=== PATIENT | female | born 1985 | race Caucasian/White ===

== ENCOUNTER 2021-05-18 20:49 | Inpatient (IN) | payer BC, OTHER ==
[2021-05-18] MEDS ORDERED: METHYLERGONOVINE 0.2 MG/ML 1 ML AMP IM PRN (21:20)
[2021-05-18] MEDS ORDERED: TERBUTALINE 1 MG/ML VIAL SQ PRN (21:20)
[2021-05-18] MEDS ORDERED: OXYTOCIN 10 UNIT/ML 1 ML VIAL IM PRN (21:20)
[2021-05-18] MEDS ORDERED: LIDOCAINE 0.5% (PF) 5 MG/ML (50 ML SDV) SQ PRN (21:20)
[2021-05-18] MEDS ORDERED: CLINDAMYCIN 900 MG in DEXTROSE 5% IN WATER 50 ML IVPB STA ×2 (21:20)
[2021-05-18] MEDS ORDERED: CARBOPROST TROMETHAMINE 250 MCG/ML 1 ML AMP IM PRN (21:20)
[2021-05-18] MEDS: LACTATED RINGERS 1,000 ML IV SCH (22:09)
[2021-05-18] MEDS ORDERED: BUTORPHANOL 1 MG/ML 1 ML VIAL IV PRN (22:44)
[2021-05-18 22:46] LABS: Basophils % (A) 0 %; Eosinophils # (A) 0.1 k/uL (0-0.7); Eosinophils % (A) 1 %; HCT 35.7 % (34.0-46.0); Lymphocytes # (A) 0.9 k/uL (1.0-4.8); Lymphocytes % (A) 12 %; MCH 33.1 pg (25.0-35.0); MCHC 33.5 g/dL (31.0-37.0); MCV 98.7 fL (80.0-100.0); Mean Platelet Volume 9.1; Monocytes # (A) 0.4 k/uL (0-1.0); Monocytes % (A) 6 %; Neutrophils # (A) 5.8 k/uL (1.3-7.7); Neutrophils % (A) 79 %; Platelet Count 223 k/uL (150-450); RBC 3.62 m/uL (3.80-5.40); RDW 13.7 % (11.5-15.5); WBC 7.4 k/uL (3.8-10.6)
[2021-05-18 22:48] LABS: Appearance,Urine Turbid (Clear); Bacteria,Urine Occasional /hpf; Bilirubin,Urine Negative (Negative); Blood,Urine Small (Negative); Color,Urine Light Yellow; Glucose,Urine (UA) Negative (Negative); Ketones,Urine Negative (Negative); Leukocyte Esterase,Urine Large (Negative); Mucus,Urine Rare /hpf; Nitrite,Urine Negative (Negative); Protein,Urine 1+ (Negative); RBC,Urine 15 /hpf (0-5); Specific Gravity,Urine 1.007 (1.001-1.035); Squamous Epithelial Cell,Urine 48 /hpf (0-4); Urobilinogen,Urine <2.0 mg/dL (<2.0); WBC,Urine 104 /hpf (0-5)
[2021-05-18 22:56] LABS: ALT 8 U/L (4-34); AST 26 U/L (14-36); African American GFR (CKD) >90 (>60 ml/min/1.73 sqM); Blood Urea Nitrogen 6 mg/dL (7-17); LDH 616 U/L (313-618); Non-African American GFR(CKD) >90 (>60 ml/min/1.73 sqM); Uric Acid 4.2 mg/dL (3.7-7.4)
[2021-05-18 22:58] LABS: Creatinine,Urine Random 27.9 mg/dL
[2021-05-18 22:59] LABS: Creatinine,Urine Random 28.1 mg/dL; Protein/Creatinine Ratio,Urine 2.598
[2021-05-19] MEDS ORDERED: OXYTOCIN 30 UNITS/500 ML NS 30 UNIT in SALINE 1 500ML.BAG IV SCH (03:00)
[2021-05-19] MEDS: LACTATED RINGERS 1,000 ML IV SCH ×3 (04:48→18:57)
[2021-05-19] MEDS: CLINDAMYCIN 900 MG in DEXTROSE 5% IN WATER 50 ML IVPB SCH ×6 (06:13→23:13)
[2021-05-19] MEDS ORDERED: SODIUM CHLORIDE 0.9% 100 ML BAG ONE (07:50)
[2021-05-19] MEDS ORDERED: ROPIVACAINE 5MG/ML 20ML VIAL ONE (07:50)
[2021-05-19] MEDS ORDERED: fentaNYL (PF) 50 MCG/ML 5 ML AMP ONE (07:50)
--- NOTE | 2021-05-19 08:04 | P.HPOB ---
History of Present Illness H&P Date: 05/19/21 Chief Complaint: Strong regular uterine contractions, spontaneous amniorrhexis This is a 36-year-old female 1 para 0 EDC 05/18/2021 at 40 and one sevenths weeks' gestation. Patient presented with her water breaking last night, clear fluid. Oxytocin was started and 3:00 this morning. She is currently very uncomfortable, requesting epidural. Fetus is been active throughout the . history blood type A positive, rubella status immune. VDRL testing, urine culture, hepatitis B surface antigen, HIV testing, gonorrhea and chlamydia cultures all negative. Positive group B strep cultures noted. Past medical history is significant for asthma, on no meds. Past surgical history: Tonsillectomy and adenoidectomy in the past Family history noncontributory. Social history patient is , she is a nonsmoker, she denies alcohol or drug use. ALLERGIES include penicillin and shellfish. Current medications vitamins daily, baby aspirin daily. On exam patient is 5 foot 1 inch, 185 pounds, vital signs are stable and she is afebrile. The general physical exam is within normal limits. Chest is clear in all olivares. Extremities reveal no edema. Uterine contractions are occurring every 2-3 minutes apart, patient rates and 10 out of 10. Cervix is 3 cm dilated, 70% effaced, -1 station, vertex presentation. heart rate is c onsistent with reactive NST. Impression: 40 and one sevenths weeks intrauterine , spontaneous labor. Positive group B strep cultures, clindamycin already received 2. Plan: We will proceed with epidural at this time. Continue close maternal and surveillance. Oxytocin to be managed per hospital protocol. Anticipating normal spontaneous vaginal delivery. Review of Systems Constitutional: Reports as per HPI Past Medical History Past Medical History: Asthma History of Any Multi-Drug Resistant Organisms: None Reported Past Surgical History: Adenoidectomy, Tonsillectomy Past Psychological History: No Psychological Hx Reported Smoking Status: Never smoker Past Alcohol Use History: Occasional Past Drug Use History: None Reported Medications and Allergies Home Medications Medication Instructions Recorded Confirmed Type Pnv No.95/Ferrous Fum/Folic AC 1 tab PO DAILY 05/18/21 05/18/21 History [ Multivitamin Tablet] Allergies Allergy/AdvReac Type Severity Reaction Status Date / Time Penicillins Allergy Rash/Hives Verified 05/18/21 20:53 shellfish derived [Shellfish] Allergy Rash/Hives Verified 05/18/21 20:53 Exam Vital Signs Temp Pulse Resp BP Pulse Ox 05/18/21 21:20 97.5 F L 82 16 153/98 98 05/18/21 20:52 97.5 F L 82 16 153/93 98 Intake and Output 05/18/21 05/19/21 05/19/21 22:59 06:59 14:59 Other: # Voids 3 4 Weight 83.915 kg See dictation under HPI placed Results Result Diagrams: 05/18/21 22:00 05/18/21 22:00 Abnormal Lab Results - Last 24 Hours (Table) 05/18/21 05/18/21 05/18/21 Range/Units 22:00 22:00 22:00 RBC (3.80-5.40) m/uL Lymphocytes # (1.0-4.8) k/uL BUN 6 L (7-17) mg/dL Creatinine 0.44 L (0.52-1.04) mg/dL Urine Appearance Turbid H (Clear) Urine Protein 1+ H (Negative) Urine Blood Small H (Negative) Ur Leukocyte Esterase Large H (Negative) Urine RBC 15 H (0-5) /hpf Urine WBC 104 H (0-5) /hpf Urine WBC Clumps Moderate H (None) /hpf Ur Squamous Epith Cells 48 H (0-4) /hpf Urine Bacteria Occasional H (None) /hpf Urine Mucus Rare H (None) /hpf U Random Total Protein 72 H (<12) mg/dL 05/18/21 Range/Units 22:00 RBC 3.62 L (3.80-5.40) m/uL Lymphocytes # 0.9 L (1.0-4.8) k/uL BUN (7-17) mg/dL Creatinine (0.52-1.04) mg/dL Urine Appearance (Clear) Urine Protein (Negative) Urine Blood (Negative) Ur Leukocyte Esterase (Negative) Urine RBC (0-5) /hpf Urine WBC (0-5) /hpf Urine WBC Clumps (None) /hpf Ur Squamous Epith Cells (0-4) /hpf Urine Bacteria (None) /hpf Urine Mucus (None) /hpf U Random Total Protein (<12) mg/dL Assessment and Plan Assessment: 40 and one sevenths weeks intrauterine , early labor. Positive group B strep cultures, clindamycin receive 2. Penicillin ALLERGY noted. Plan: Continue close maternal and surveillance. Continue oxytocin per hospital protocol. Epidural has been requested and anesthesia is aware. Anticipate normal spontaneous vaginal delivery. Time with Patient: Less than 30
[2021-05-19] MEDS ORDERED: OXYTOCIN 30 UNITS/500 ML NS BAG IV ONE (16:46)
[2021-05-19] MEDS ORDERED: NALBUPHINE 10 MG/ML (1 ML AMP) ONE (16:46)
[2021-05-19] MEDS ORDERED: HYDROmorphone (PF) 1 MG/ML ONE (16:46)
[2021-05-19] MEDS ORDERED: KETOROLAC 15 MG/ML 1 ML VIAL ONE (16:46)
[2021-05-19] MEDS ORDERED: ONDANSETRON 4 MG/2 ML VIAL ONE (16:46)
[2021-05-19] MEDS ORDERED: LIDOCAINE 2% SYG (PF) 100 MG/5 ML ONE (16:46)
[2021-05-19] MEDS ORDERED: diphenhydrAMINE 50 MG CAP PO PRN (17:41)
[2021-05-19] MEDS ORDERED: METOCLOPRAMIDE 5 MG/ML 2 ML VIAL IVP PRN (17:41)
[2021-05-19] MEDS ORDERED: ZOLPIDEM 5 MG TAB PO PRN (17:41)
[2021-05-19] MEDS ORDERED: diphenhydrAMINE 25 MG CAP PO PRN (17:41)
[2021-05-19] MEDS ORDERED: SIMETHICONE 80 MG CHEWABLE PO PRN (17:41)
[2021-05-19] MEDS ORDERED: ONDANSETRON 4 MG/2 ML VIAL IVP PRN (17:41)
[2021-05-19] MEDS ORDERED: NALOXONE 0.4 MG/ML 1 ML VIAL IV PRN ×2 (17:41→18:19)
[2021-05-19] MEDS ORDERED: diphenhydrAMINE 50 MG/ML 1 ML VIAL IVP PRN ×2 (17:41)
--- NOTE | 2021-05-19 17:41 | P.OP ---
Date of Procedure: 05/19/21 Preoperative Diagnosis: 30 and one sevenths weeks' gestation, arrest of dilatation and descent. Postoperative Diagnosis: Same, occiput posterior, nuchal cord 2, liveborn male Procedure(s) Performed: Primary low transverse section Anesthesia: epidural Surgeon: Shala Cheatham Physicist Cryogenics #1: Kajal Lange Estimated Blood Loss (ml): 1,480 IV fluids (ml): 1,000 Urine output (ml): 100 Pathology: none sent Condition: stable Disposition: PACU Indications for Procedure: Arrest of dilatation and descent at 5-6 cm Operative Findings: Liveborn male infant, occiput posterior. Nuchal cord 2. Normal-appearing tubes and ovaries bilaterally. Description of Procedure: Patient is brought to the [facility] and suite where the epidural placed for labor was topped off per the anesthesia staff. She's placed in the dorsal supine position with left lateral uterine displacement. Antibiotics are given. Bicitra has been given. Rust catheter placed to direct drainage. The abdomen is prepped and draped in usual sterile fashion. The analgesia is checked and noted to be adequate. A low transverse incision is made after the appropriate timeout is p erformed. The incision is carried down through the subcutaneous tissue to the fascia, which is isolated, scored, extended bilaterally with curved Harris scissors. Peritoneum is next identified and incised, there is no bowel or bladder involvement. Bladder blade is placed over the dome of the bladder and at all times the bladder is Well from the operative field to avoid injury. A low transverse uterine incision is made, extended with blunt dissection. 's head is delivered in the occiput posterior position. There is a nuchal cord 2 that is reduced. Patient is officially delivered of a liveborn male infant at 1704 hrs. The oropharynx, nasopharynx, and external nares are suctioned. The umbilical cord is doubly clamped and ligated, he is handed to waiting nurses for evaluation where scores of 8 and 9 at one and 5 minutes respectively are given. Placentas delivered manually, it is inspected and noted to be intact with trivascular cord at 1705 hrs. At this time the uterus is massaged and externalized. It is swept clean with a sterile sponge to avoid any retained products of conception. Oxytocin is given. Uterus is closed in a two-step fashion, first layer running locking, second layer imbricated, both with 0 Vicryl suture. Bilateral tubes and ovaries appear normal to inspection. Uterine defects are not noted. The abdomen is then suctioned posterior to the uterus with a suction on guard. The uterus is gently placed back into the abdominal cavity. Bilateral gutters are inspected and cleaned. The surgical gel powder is used on the uterine incision to aid in hemostasis, which at this time is very good. The peritoneum was allowed close by secondary intention. The fascia is closed in a running stitch of 0 Vicryl with over ligation in the midline. Subcutaneous tissue is irrigated, clean and dry. It is reapproximated with 2-0 Vicryl in a running stitch. 4-0 undyed Monocryl is used for final skin closure. Total estimated blood loss I am told is 1480 mL's. Fluid replacement 1000 mL in the OR, urine 100 mL, clear in the tube. weighs 8 lbs. 14 oz. or or 030 g. Patient is brought back to recovery room with stable vital signs. She is requesting circumcision for her infant son.
[2021-05-19] MEDS ORDERED: MORPHINE SULFATE 2 MG/ML SYRINGE IVP PRN (18:19)
[2021-05-19] MEDS: ACETAMINOPHEN TAB 500 MG TAB PO SCH (21:42)
[2021-05-19] MEDS: SENNOSIDES-DOCUSATE SODIUM 1 EACH TAB PO SCH (23:13)
[2021-05-19] MEDS: IBUPROFEN 600 MG TAB PO SCH (23:19)
[2021-05-20] MEDS: ACETAMINOPHEN TAB 500 MG TAB PO SCH ×4 (03:59→23:51)
[2021-05-20] MEDS: LACTATED RINGERS 1,000 ML IV SCH ×6 (04:04→20:36)
[2021-05-20 06:53] LABS: Basophils % (A) 0 %; Eosinophils % (A) 0 %; HCT 29.6 % (34.0-46.0); Lymphocytes # (A) 0.9 k/uL (1.0-4.8); Lymphocytes % (A) 7 %; MCH 32.7 pg (25.0-35.0); MCHC 33.1 g/dL (31.0-37.0); MCV 98.8 fL (80.0-100.0); Mean Platelet Volume 10.7; Monocytes # (A) 0.5 k/uL (0-1.0); Monocytes % (A) 4 %; Neutrophils # (A) 11.5 k/uL (1.3-7.7); Neutrophils % (A) 88 %; Platelet Count 204 k/uL (150-450); RBC 2.99 m/uL (3.80-5.40); RDW 13.7 % (11.5-15.5)
[2021-05-20 07:18] LABS: HGB 9.8 gm/dL (11.4-16.0)
[2021-05-20] MEDS: SENNOSIDES-DOCUSATE SODIUM 1 EACH TAB PO SCH ×2 (07:32→20:08)
[2021-05-20] MEDS: IBUPROFEN 600 MG TAB PO SCH ×3 (07:32→20:08)
--- NOTE | 2021-05-20 08:15 | P.PN ---
Subjective Progress Note Date: 05/20/21 Principal diagnosis: Doing well postoperative day #1 Slept well. Minimal pain. Minimal lochia rubra. Positive flatus. Objective - Vital Signs Vital signs: Vital Signs Temp 98.1 F 05/20/21 07:37 Pulse 83 05/20/21 07:37 Resp 15 05/20/21 07:37 BP 130/82 05/20/21 07:37 Pulse Ox 97 05/20/21 07:37 Intake & Output 05/19/21 05/20/21 05/20/21 18:59 06:59 18:59 Intake Total 14.367 Output Total 200 900 200 Balance -185.633 -900 -200 Intake: Intake, IV Titration 14.367 Amount Oxytocin 30 Units/500 ml 14.367 Ns 30 unit In Saline 1 500ml.bag @ Per Protocol IV .Q0M [facility] Rx#:[id number] Output: Urine 200 750 200 Uretheral (Rust) 200 Estimated Blood Loss 150 Other: # Voids 0 1 - Constitutional General appearance: Present: average body habitus, cooperative - EENT Eyes: Present: PERRLA ENT: Present: hearing grossly normal - Neck Thyroid: bilateral: normal size - Respiratory Respiratory: bilateral: CTA - Cardiovascular Rhythm: regular - Gastrointestinal General gastrointestinal: Present: normal bowel sounds - Integumentary Integumentary Comment(s): Incision clean and dry, intact, Steri-Strips applied. Fundus firm, midline, symmetric, 18 week size. Integumentary: Present: normal - Neurologic Neurologic: Present: CNII-XII intact - Musculoskeletal Musculoskeletal: Present: gait normal, strength equal bilaterally - Psychiatric Psychiatric: Present: A&O x's 3, appropriate affect, intact judgment & insight - Labs CBC & Chem 7: 05/20/21 06:42 05/18/21 22:00 Labs: Abnormal Lab Results - Last 24 Hours (Table) 05/20/21 Range/Units 06:42 WBC 13.0 H (3.8-10.6) k/uL RBC 2.99 L (3.80-5.40) m/uL Hgb 9.8 L D (11.4-16.0) gm/dL Hct 29.6 L (34.0-46.0) % Neutrophils # 11.5 H (1.3-7.7) k/uL Lymphocytes # 0.9 L (1.0-4.8) k/uL Assessment and Plan Assessment: Doing well postoperative day #1 Plan: Advance diet and activity. Continue postoperative care. Likely discharge home tomorrow. Time with Patient: Less than 30
--- NOTE | 2021-05-20 11:36 | P.PN ---
Progress Note - Text Date: 05/20/2021 Time: 07:07 The patient is status post section Vital signs stable VAS: 0-10 Patient has no complaints of pain. The patient incurred some minimal itching yesterday, this itching is now subsiding. Pain meds to be managed by service.
[2021-05-21] MEDS: IBUPROFEN 600 MG TAB PO SCH ×4 (03:05→21:18)
[2021-05-21] MEDS: ACETAMINOPHEN TAB 500 MG TAB PO SCH (06:15)
--- NOTE | 2021-05-21 10:15 | P.PNOBGPC ---
Subjective - Subjective Patient reports: Reports appetite normal, Reports voiding normally, Reports pain well controlled, Reports ambulating normally : doing well, in NICU (Receiving ongoing antibiotic prophylaxis pending cultures.) Objective - Vital Signs Latest vital signs: Vital Signs Temp Pulse Resp BP Pulse Ox 05/21/21 07:46 97.6 F 75 16 135/87 05/20/21 23:55 98.2 F 88 16 136/88 98 05/20/21 20:35 17 05/20/21 18:30 16 99 05/20/21 17:00 16 05/20/21 16:00 98.0 F 97 16 140/90 99 05/20/21 15:00 16 99 05/20/21 12:00 97.8 F 73 15 109/73 98 05/20/21 10:30 15 Intake and Output 05/20/21 05/21/21 05/21/21 22:59 06:59 14:59 Other: Voiding Method Toilet # Voids 2 2 2 - Exam Extremities: Present: normal, edema (2+ bilateral lower extremity edema to just below the knee.) Abdomen: Present: normal appearance, soft. Absent: distention, tenderness Incision: Present: normal, dry, intact Uterus: Present: normal, firm (The uterine fundus as tonic and appropriate tender just below the umbilicus.) Assessment and Plan (1) Status post section Current Visit: Yes Status: Acute Code(s): Z98.891 - HISTORY OF UTERINE SCAR FROM PREVIOUS SURGERY SNOMED Code(s): 607168690 Plan: Continue routine postoperative care awaiting the outcome of the 's cultures. I have continued to encourage her to ambulate routinely in the hallways. As she has not yet been prescribed narcotic and is continuing to have fairly significant pain, I will start [place] 5/325 mg as needed for oral pain relief.
[2021-05-21] MEDS: HYDROcodone/APAP 5-325MG 1 EACH TAB PO PRN ×2 (12:14→18:15)
[2021-05-21] MEDS: SENNOSIDES-DOCUSATE SODIUM 1 EACH TAB PO SCH ×2 (18:47→21:18)
[2021-05-22] MEDS: HYDROcodone/APAP 5-325MG 1 EACH TAB PO PRN ×4 (00:52→21:09)
[2021-05-22] MEDS: ACETAMINOPHEN TAB 500 MG TAB PO SCH ×6 (00:55→21:49)
[2021-05-22 00:59] VITALS: RESP 16
[2021-05-22 01:15] LABS: Basophils % (A) 0 %; Eosinophils # (A) 0.1 k/uL (0-0.7); Eosinophils % (A) 2 %; HCT 26.1 % (34.0-46.0); HGB 8.8 gm/dL (11.4-16.0); Lymphocytes % (A) 16 %; MCH 33.2 pg (25.0-35.0); MCHC 33.7 g/dL (31.0-37.0); MCV 98.6 fL (80.0-100.0); Mean Platelet Volume 9.2; Monocytes # (A) 0.4 k/uL (0-1.0); Monocytes % (A) 5 %; Neutrophils # (A) 4.8 k/uL (1.3-7.7); Neutrophils % (A) 75 %; Platelet Count 243 k/uL (150-450); RBC 2.64 m/uL (3.80-5.40); RDW 13.6 % (11.5-15.5); WBC 6.4 k/uL (3.8-10.6)
[2021-05-22 01:31] LABS: ALT 7 U/L (4-34); AST 19 U/L (14-36); African American GFR (CKD) >90 (>60 ml/min/1.73 sqM); Blood Urea Nitrogen 14 mg/dL (7-17); LDH 412 U/L (313-618); Non-African American GFR(CKD) >90 (>60 ml/min/1.73 sqM); Uric Acid 4.5 mg/dL (3.7-7.4)
[2021-05-22] MEDS: IBUPROFEN 600 MG TAB PO SCH ×6 (04:32→23:53)
[2021-05-22] MEDS: SENNOSIDES-DOCUSATE SODIUM 1 EACH TAB PO SCH ×2 (08:19→21:12)
[2021-05-22] MEDS ORDERED: LABETALOL 100 MG TAB PO SCH (09:45)
--- NOTE | 2021-05-22 11:40 | P.PNOBGPC ---
Subjective - Subjective Principal diagnosis: pod #3 LTCS, Interval history: Patient has noted elevated blood pressures since last evening. Preeclampsia labs were done which were normal. Patient has noted blood pressures 140s to 160s over 80s to 90s. Patient denies signs or symptoms of preeclampsia. Oral labetalol was begun this morning. Her pain is well-controlled. She is ambulating and voiding without difficulty. She is tolerating a regular diet without nausea or vomiting. She is very discouraged with her blood pressures and is very desirous of discharge home. Patient reports: Reports appetite normal, Reports voiding normally, Reports pain well controlled, Reports ambulating normally : doing well Objective - Vital Signs Latest vital signs: Vital Signs Temp Pulse Resp BP 05/22/21 08:00 97.6 F 68 16 164/101 05/22/21 00:00 98.8 F 80 16 142/96 05/21/21 16:00 97.8 F 75 18 139/98 Intake and Output 05/21/21 05/22/21 05/22/21 22:59 06:59 14:59 Other: # Voids 3 2 1 - Exam Extremities: Present: normal, edema Abdomen: Present: normal appearance Incision: Present: normal, intact - Labs Labs: Abnormal Lab Results - Last 24 Hours (Table) 05/22/21 Range/Units 00:55 RBC 2.64 L (3.80-5.40) m/uL Hgb 8.8 L (11.4-16.0) gm/dL Hct 26.1 L (34.0-46.0) % Assessment and Plan (1) Term Current Visit: Yes Status: Acute Code(s): Z34.90 - ENCNTR FOR SUPRVSN OF NORMAL , UNSP, UNSP TRIMESTER SNOMED Code(s): 34999873 (2) SROM (spontaneous rupture of membranes) Current Visit: Yes Status: Acute Code(s): YDT4543 - SNOMED Code(s): 517523311 (3) Arrest of dilation, delivered, current hospitalization Current Visit: Yes Status: Acute Code(s): O62.1 - SECONDARY UTERINE INERTIA SNOMED Code(s): 11140007 (4) S/P section Current Visit: Yes Status: Acute Code(s): Z98.891 - HISTORY OF UTERINE SCAR FROM PREVIOUS SURGERY SNOMED Code(s): 168756270 Plan: 36-year-old 1 now para 1 status post primary for arrest of dilation. Patient initially was doing well. Patient had noted elevated blood pressures yesterday evening into this morning. Repeat preeclampsia labs were performed last night which were normal in nature. Patient had elevated blood pressure this morning 164/101. Oral labetalol was given. We will monitor blood pressures today as far as frequency of labetalol dosing and symptoms. Patient is very discouraged as she wanted to go home today we'll monitor closely and discharge when appropriate.
[2021-05-22] MEDS: LABETALOL 200 MG TAB PO SCH ×2 (14:35→21:10)
[2021-05-23] MEDS: HYDROcodone/APAP 5-325MG 1 EACH TAB PO PRN ×2 (03:02→08:44)
[2021-05-23] MEDS: ACETAMINOPHEN TAB 500 MG TAB PO SCH (04:04)
[2021-05-23] MEDS: IBUPROFEN 600 MG TAB PO SCH (06:17)
--- NOTE | 2021-05-23 06:33 | P.DS ---
Providers Date of admission: 05/18/21 21:08 Expected date of discharge: 05/23/21 Attending physician: Shala Cheatham Primary care physician: Stated None - Discharge Diagnosis(es) (1) Term Current Visit: Yes Status: Acute (2) SROM (spontaneous rupture of membranes) Current Visit: Yes Status: Acute (3) Arrest of dilation, delivered, current hospitalization Current Visit: Yes Status: Acute (4) S/P section Current Visit: Yes Status: Acute Hospital Course: This is a 36-year-old that presented to labor and delivery with complaints of spontaneous rupture of membranes. Patient was admitted to labor and delivery, minimal contractions were noted therefore Pitocin augmentation of labor was begun. Patient arrested in labor and was taken for primary secondary to arrest of dilation. Patient's postoperative course has been complicated on postoperative day #3 with elevated blood pressures. Patient was 150s to 160s over 90s to 100. Patient has denied signs or symptoms of preeclampsia. Patient is very frustrated as she has unable to sleep. In the hospital, and her infant was in the nursery for approximate 48 hours. Patient is requesting discharge home, she states she does have a blood pressure cuff at home and will monitor. Overall she is feeling well. She is just extremely fatigued. She states she is unable to sleep here in the the hospital. Patient is ambulating and voiding without difficulty. She is tolerating a regular diet without nausea or vomiting. She denies headaches or abdominal pain. She is using [place] for pain control status post section. She is bottle feeding. Patient Condition at Discharge: Good Plan - Discharge Summary Discharge Rx Participant: No New Discharge Prescriptions: No Action Pnv No.95/Ferrous Fum/Folic AC [ Multivitamin Tablet] 1 tab PO DAILY Discharge Medication List Pnv No.95/Ferrous Fum/Folic AC [ Multivitamin Tablet] 1 tab PO DAILY 05/18/21 [History] Follow up Appointment(s)/Referral(s): Shala Cheatham MD [STAFF PHYSICIAN] - 1 Week Patient Instructions/Handouts: (DC), (GEN) Activity/Diet/Wound Care/Special Instructions: Patient is asked to monitor her blood pressures at home. She is given a prescription for labetalol 200 mg 3 times a day. She is given preeclampsia precautions. She is asked to see Dr. Cheatham in the office for blood pressure check Monday. Discharge Disposition: HOME SELF-CARE
[2021-05-23] MEDS: SENNOSIDES-DOCUSATE SODIUM 1 EACH TAB PO SCH (08:45)
[2021-05-23] MEDS: LABETALOL 200 MG TAB PO SCH (08:45)
[2021-05-23 10:45] VITALS: BP 149/100; PULSE 86; TEMP 98.3
== END 2021-05-23 10:30 | disposition home or self-care (01) | DRG 788 ==
LOC: FBPOP 20:49 → 4FBP 21:08
PROVIDERS: ADMIT Obstetrics & Gynecology; ATTEND Obstetrics & Gynecology
PROC: 3E033VJ Introduction of Other Hormone into Peripheral Vein, Percutaneous Approach (ICD-10-PCS; principal; 2021-05-19 17:00)
PROC: 10D00Z1 Extraction of Products of Conception, Low, Open Approach (ICD-10-PCS; principal; 2021-05-19 17:00)
DX: O32.8XX0 Maternal care for other malpresentation of fetus, not applicable or unspecified (principal); O62.0 Primary inadequate contractions; O99.513 Diseases of the respiratory system complicating pregnancy, third trimester; O99.824 Streptococcus B carrier state complicating childbirth; O69.81X0 Labor and delivery complicated by cord around neck, without compression, not applicable or unspecified; J45.909 Unspecified asthma, uncomplicated; O90.89 Other complications of the puerperium, not elsewhere classified; R03.0 Elevated blood-pressure reading, without diagnosis of hypertension; Z37.0 Single live birth; Z79.82 Long term (current) use of aspirin; Z88.0 Allergy status to penicillin; Z91.013 Allergy to seafood; Z3A.40 40 weeks gestation of pregnancy
CPT/HCPCS: 59025; 81001; 82565; 82570; 83615; 84156; 84450; 84460; 84520; 84550; 85025; 86850; 86900; 86901; 99213

== ENCOUNTER 2021-05-25 08:01 | Inpatient (IN) | payer OTHER ==
[2021-05-25] MEDS ORDERED: SODIUM CHLORIDE 0.9% 1,000 ML IV STA (08:13)
--- NOTE | 2021-05-25 08:25 | ED ---
General Adult HPI - General Chief complaint: Recheck/Abnormal Lab/Rx Stated complaint: High BP Time Seen by Provider: 05/25/21 08:10 Source: patient Mode of arrival: ambulatory Limitations: no limitations - History of Present Illness Initial comments: Dictation was produced using [employer] dictation software. please excuse any grammatical, word or spelling errors. Chief Complaint: 36-year-old female 6 days presents with elevated blood pressures. History of Present Illness: 36-year-old female she is 6 days. She is under the care of retail support specialist Dr. Cheatham. Patient states she's been checking her blood pressures as instructed at home with creeping blood pressures. Patient delivered here in our hospital. Patient reports that she has been having elevated blood pressures a month prior to delivering. She delivered via . She had diagnosis of peripartum hypertension. States that she was here in the hospital and was observed for one more day. She wanted to be discharged. She is discharged with blood pressure medications. She was given labetalol 200 mg 3 times a day. She's been checking her blood pressures at home with her blood pressures increasing. She does not report any headache, vision changes, worsening lower extremity swelling, numbness and paresthesias. She is feeling fine and tolerating oral without any complications. The ROS documented in this emergency department record has been reviewed and confirmed by me. Those systems with pertinent positive or negative responses have been documented in the HPI. All other systems are other negative and/or noncontributory. PHYSICAL EXAM: General Impression: Alert and oriented x3, not in acute distress HEENT: Normocephalic atraumatic, extra-ocular movements intact, pupils equal and reactive to light bilaterally, mucous membranes moist. Cardiovascular: Heart regular rate and rhythm Chest: Able to complete full sentences, no retractions, no tachypnea Abdomen: abdomen soft, non-tender, non-distended, no organomegaly Musculoskeletal: Pulses present and equal in all extremities, 2+ pitting edema to the bilateral lower extremities Motor: no focal deficits noted Neurological: CN II-XII grossly intact, no focal motor or sensory deficits noted Skin: Intact with no visualized rashes Psych: Normal affect and mood ED course: 36-year-old female presents with elevated blood pressures. Patient states that she was diagnosed with hypertension 1 month before delivering. She is 6 days . There was concern of preeclampsia while patient was in the hospital however was not having any symptoms of eclampsia discharge with oral blood pressure medications. Vital signs upon arrival shows blood pressure 188/107, rest of vital signs within acceptable limits. Patient's well-appearing at bedside. Shortly after patient was complaining of headache. There is concern that patient's clinical presentation evolving into eclampsia. Labetalol and magnesium was ordered. Patient case was discussed with Dr. Cheatham who requested patient be brought to the labor and delivery floor stat. - Related Data Home Medications Medication Instructions Recorded Confirmed Pnv No.95/Ferrous Fum/Folic AC 1 tab PO DAILY 05/18/21 05/18/21 [ Multivitamin Tablet] Allergies Allergy/AdvReac Type Severity Reaction Status Date / Time Penicillins Allergy Rash/Hives Verified 05/25/21 08:08 shellfish derived [Shellfish] Allergy Rash/Hives Verified 05/25/21 08:08 Review of Systems ROS Statement: Those systems with pertinent positive or pertinent negative responses have been documented in the HPI. ROS Other: All systems not noted in ROS Statement are negative. Past Medical History Past Medical History: Asthma, Hypertension History of Any Multi-Drug Resistant Organisms: None Reported Past Surgical History: Adenoidectomy, Section, Tonsillectomy Past Psychological History: No Psychological Hx Reported Smoking Status: Never smoker Past Alcohol Use History: Occasional Past Drug Use History: None Reported General Exam Limitations: no limitations Course Vital Signs 05/25/21 08:04 Temperature 98.3 F Pulse Rate 62 Respiratory 18 Rate Blood Pressure 188/107 O2 Sat by Pulse 99 Oximetry Medical Decision Making - Lab Data Result diagrams: 05/25/21 08:34 Lab Results 05/25/21 Range/Units 08:34 WBC 5.8 (3.8-10.6) k/uL RBC 3.07 L (3.80-5.40) m/uL Hgb 10.1 L (11.4-16.0) gm/dL Hct 29.4 L (34.0-46.0) % MCV 95.6 (80.0-100.0) fL MCH 33.0 (25.0-35.0) pg MCHC 34.5 (31.0-37.0) g/dL RDW 13.4 (11.5-15.5) % Plt Count 386 (150-450) k/uL MPV 7.3 Neutrophils % 74 % Lymphocytes % 15 % Monocytes % 4 % Eosinophils % 2 % Basophils % 1 % Neutrophils # 4.3 (1.3-7.7) k/uL Lymphocytes # 0.9 L (1.0-4.8) k/uL Monocytes # 0.2 (0-1.0) k/uL Eosinophils # 0.1 (0-0.7) k/uL Basophils # 0.0 (0-0.2) k/uL Critical Care Time Critical Care Time: Yes Total Critical Care Time: 33 Disposition Clinical Impression: Eclampsia Disposition: OTHER INSTITUTION NOT DEFINED Condition: Critical Referrals: None,Stated [Primary Care Provider] - 1-2 days - Out of Hospital Transfer - Req. Specs Out of Hospital Transfer - Requested Specifics: Other Emergency Center (In hospital labor and delivery floor per SYSTEMS COORDINATOR request)
[2021-05-25] MEDS ORDERED: LABETALOL 5 MG/ML VIAL MDV IVP STA (08:26)
[2021-05-25] MEDS ORDERED: MAGNESIUM SULFATE-WATER PMX 4 GM in WATER FOR INJECTION 1 100ML.BAG IVPB STA (08:36)
[2021-05-25 08:45] LABS: Basophils % (A) 1 %; Eosinophils # (A) 0.1 k/uL (0-0.7); Eosinophils % (A) 2 %; HCT 29.4 % (34.0-46.0); HGB 10.1 gm/dL (11.4-16.0); Lymphocytes # (A) 0.9 k/uL (1.0-4.8); Lymphocytes % (A) 15 %; MCHC 34.5 g/dL (31.0-37.0); MCV 95.6 fL (80.0-100.0); Mean Platelet Volume 7.3; Monocytes # (A) 0.2 k/uL (0-1.0); Monocytes % (A) 4 %; Neutrophils # (A) 4.3 k/uL (1.3-7.7); Neutrophils % (A) 74 %; Platelet Count 386 k/uL (150-450); RBC 3.07 m/uL (3.80-5.40); RDW 13.4 % (11.5-15.5); WBC 5.8 k/uL (3.8-10.6)
[2021-05-25 09:00] LABS: ALT 15 U/L (4-34); AST 21 U/L (14-36); African American GFR (CKD) >90 (>60 ml/min/1.73 sqM); Albumin 3.3 g/dL (3.5-5.0); Alkaline Phosphatase 108 U/L (38-126); Anion Gap 7 mmol/L; Blood Urea Nitrogen 18 mg/dL (7-17); Calcium 8.6 mg/dL (8.4-10.2); Carbon Dioxide 21 mmol/L (22-30); Chloride 111 mmol/L (98-107); Glucose 90 mg/dL (74-99); LDH 555 U/L (313-618); Non-African American GFR(CKD) >90 (>60 ml/min/1.73 sqM); Potassium 3.4 mmol/L (3.5-5.1); Sodium 139 mmol/L (137-145); Total Bilirubin 0.3 mg/dL (0.2-1.3); Total Protein 5.7 g/dL (6.3-8.2); Uric Acid 4.9 mg/dL (3.7-7.4)
[2021-05-25] MEDS ORDERED: hydrALAZINE HCL 20 MG/ML 1 ML VIAL IVP STA ×3 (09:28→13:47)
[2021-05-25] MEDS ORDERED: MAGNESIUM SULFATE GM 6 GM in SODIUM CHLORIDE 0.9% 100 ML IVPB ONE (09:30)
[2021-05-25 09:51] LABS: Appearance,Urine Clear (Clear); Bilirubin,Urine Negative (Negative); Blood,Urine Small (Negative); Color,Urine Colorless; Glucose,Urine (UA) Negative (Negative); Ketones,Urine Negative (Negative); Leukocyte Esterase,Urine Negative (Negative); Nitrite,Urine Negative (Negative); PH, Urine 6.5 (5.0-8.0); Protein,Urine Negative (Negative); RBC,Urine <1 /hpf (0-5); Specific Gravity,Urine 1.005 (1.001-1.035); Urobilinogen,Urine <2.0 mg/dL (<2.0); WBC,Urine <1 /hpf (0-5)
[2021-05-25] MEDS: MAGNESIUM SULFATE-WATER PMX 20 GM in WATER FOR INJECTION 1 500ML.BAG IV SCH ×2 (10:26→20:40)
[2021-05-25] MEDS ORDERED: IBUPROFEN 600 MG TAB PO PRN (10:43)
[2021-05-25] MEDS ORDERED: ACETAMINOPHEN TAB 500 MG TAB PO PRN (10:43)
[2021-05-25] MEDS: LACTATED RINGERS 1,000 ML IV SCH (11:07)
--- NOTE | 2021-05-25 12:22 | P.HPOB ---
History of Present Illness H&P Date: 05/25/21 Chief Complaint: Elevated blood pressures at home This is a 36-year-old female 1 para 0 status post section 6 days ago on 05/18/2021 at 40 and one sevenths weeks' gestation for arrest of dilatation and descent. Patient was noted to be hypertensive on the third postoperative day, was encouraged to stay in the hospital, but elected to be discharged home on labetalol 200 mg 3 times a day. She was monitor blood pressures at home. Over the past 24 hours blood pressures have elevated, and she re-presented to the hospital for evaluation where initial blood pressure was noted to be 180/107. Patient denies visual changes or right upper quadrant pain. She has a mild headache. She has no other complaints. Minimal lochia rubra. No issues with the incision. No pain. Past history is significant for exercise-induced asthma, on no meds. Past surgical history tonsillectomy and adenoidectomy in the past, low transverse section on 05/18/2021 under my care. Family history significant for hypertension in the patient's father. Otherwise negative. Social history patient is , she is a nonsmoker, she has no alcohol or drug use. ALLERGIES include penicillin and shellfish to which reports a rash. Current medications vitamin daily, labetalol 200 mg 3 times daily. On exam patient is 5 foot 1 inch, 171.8 pounds, blood pressure currently 137/84. She has received 2 doses have hydralazine, 10 mg IV push. Magnesium sulfate 6 g loading dose has been given, currently running at 2 g per hour. Chest is clear in all olivares. Cardiac exam reveals regular rate and rhythm with no extra heart sounds, murmurs clicks or rubs. Abdomen is soft, nontender, incision is clean and dry and intact, Steri-Strips applied. Fundus is firm, nontender, symmetric, approximately 16 week size. Active bowel sounds. No CVA tenderness. Extremities reveal 3+ reflexes, 3+ edema, pitting, no clonus. Minimal lochia rubra is noted. Labs include hemoglobin 10.1, platelets 386,000, uric acid 4.9, AST 21, ALTs 15, BUS and 18. Impression: 6 days status post section with gestational hypertension, no laboratory findings consistent with preeclampsia. Plan: Magnesium sulfate to continue for 24 hours. Consider switching to Procardia XL orally, pending blood pressure progress in the next several hours. Close maternal surveillance. Would consider maternal echocardiogram if blood pressures do not stabilized with our current regime. Of this to the patient who understands and agrees. Past Medical History Past Medical History: Asthma, Hypertension History of Any Multi-Drug Resistant Organisms: None Reported Past Surgical History: Adenoidectomy, Section, Tonsillectomy Past Psychological History: No Psychological Hx Reported Smoking Status: Never smoker Past Alcohol Use History: Occasional Past Drug Use History: None Reported Medications and Allergies Home Medications Medication Instructions Recorded Confirmed Type Labetalol [Trandate] 200 tab PO TID 05/25/21 05/25/21 History Allergies Allergy/AdvReac Type Severity Reaction Status Date / Time Penicillins Allergy Rash/Hives Verified 05/25/21 08:08 shellfish derived [Shellfish] Allergy Rash/Hives Verified 05/25/21 08:08 Exam Vital Signs Temp Pulse Pulse Resp BP BP Pulse Ox 05/25/21 09:11 98 F 56 L 16 179/100 05/25/21 09:02 98 20 185/121 99 05/25/21 08:04 98.3 F 62 18 188/107 99 Intake and Output 05/24/21 05/25/21 05/25/21 22:59 06:59 14:59 Other: Weight 77.927 kg See dictation under HPI please Results Result Diagrams: 05/25/21 08:34 05/25/21 08:34 Abnormal Lab Results - Last 24 Hours (Table) 05/25/21 05/25/21 05/25/21 Range/Units 08:34 08:34 09:31 RBC 3.07 L (3.80-5.40) m/uL Hgb 10.1 L (11.4-16.0) gm/dL Hct 29.4 L (34.0-46.0) % Lymphocytes # 0.9 L (1.0-4.8) k/uL Potassium 3.4 L (3.5-5.1) mmol/L Chloride 111 H (98-107) mmol/L Carbon Dioxide 21 L (22-30) mmol/L BUN 18 H (7-17) mg/dL Total Protein 5.7 L (6.3-8.2) g/dL Albumin 3.3 L (3.5-5.0) g/dL Urine Blood Small H (Negative) Assessment and Plan Assessment: 6 days status post section, re-presenting with severe gestational hypertension. Plan: continue magnesium sulfate for 24 hours. Consider switching to oral Procardia pending blood pressure progress. Hydralazine 10 mg IV push as needed. Consider echocardiogram versus cardiology consult pending progress. Time with Patient: Less than 30
[2021-05-25] MEDS ORDERED: LABETALOL 200 MG TAB PO SCH (16:15)
[2021-05-25] MEDS: LABETALOL 100 MG TAB PO SCH ×2 (16:33→21:41)
[2021-05-25] MEDS: HYDROcodone/APAP 5-325MG 1 EACH TAB PO PRN ×2 (16:37→19:52)
--- NOTE | 2021-05-25 16:48 | P.CONS ---
History of Present Illness - Reason for Consult Consult date: 05/25/21 high blood pressure Requesting physician: Shala Cheatham - Chief Complaint high blood pressure - History of Present Illness Patient is a 36 yo female who is s/p 6 days ago with post- HTN who presented due to increasing blood pressures despite labetalol. She was admitted to Dr. Cheatham and we are asked to consult for HTN. She was given hydralazine multiple doses and magnesium. Patient seen and examined at bedside. She reports that she had blood pressure 190 at home. She did not take her medications this morning and proceeded to a hospital. She currently reports having a headache that starts in her right oriental orthodox, moves to her left oriental orthodox, and then down to her neck. She reports she had some chest fullness earlier when her blood pressure was higher but has self resolved. She has been having lower extremity edema for the last 2 months. She denies any shortness of breath. She denies any tobacco use, alcohol use, or illicit drug use. Pertinent positives and negatives as discussed in HPI, a complete review of systems was performed and all other systems are negative. General: non toxic, no distress, appears at stated age Derm: warm, dry Head: atraumatic, normocephalic, symmetric Eyes: EOMI, no lid lag, anicteric sclera, pupils equal round reactive to light ENT: Nose and ears atraumatic, no thrush, no pharyngeal erythema Neck: No thyromegaly, no cervical lymphadenopathy, trachea midline, supple Mouth: no lip lesion, mucus membranes moist Cardiovascular: S1S2 reg, no murmur, positive posterior tibial pulse bilateral, no edema, capillary refill less than 2 seconds Lungs: clear to ascultation bilateral, no ronchi, no rales, no wheeze, no accessory muscle use Abdominal: soft, +tender to palpation RLQ and LLQ, no guarding, no appreciable organomegaly, normal bowel sounds Ext: no gross muscle atrophy, muscle strength muscle strength 5 out of 5 in all 4 extremities, no contractures Neuro: CN II-XI grossly intact, light touch intact all 4 extremities, finger to nose within normal limits, Psych: Alert, oriented, appropriate affect Post parturm HTN - Resume labetalol but change to 300 twice daily first dose now - follow BP and call SOund in SBP >140 or DBP >90 and will add procardia xL - blood pressures q1hour Obesity with BMI 32.5 - outpatient structured weight loss Thank you for allowing us to participate in the care of this pleasant patient. Do not hesitate to contact us with questions. Someone can be reached from the [facility] hospitalist group all hours of the day at [phone] or via [employer]. Past Medical History Past Medical History: Asthma, Hypertension History of Any Multi-Drug Resistant Organisms: None Reported Past Surgical History: Adenoidectomy, Section, Tonsillectomy Past Psychological History: No Psychological Hx Reported Smoking Status: Never smoker Past Alcohol Use History: Occasional Past Drug Use History: None Reported - Past Family History Father Family Medical History: Hypertension Medications and Allergies Home Medications Medication Instructions Recorded Confirmed Type Labetalol [Trandate] 200 tab PO TID 05/25/21 05/25/21 History Allergies Allergy/AdvReac Type Severity Reaction Status Date / Time Penicillins Allergy Rash/Hives Verified 05/25/21 08:08 shellfish derived [Shellfish] Allergy Rash/Hives Verified 05/25/21 08:08 Physical Exam Osteopathic Statement: *. No significant issues noted on an osteopathic structural exam other than those noted in the History and Physical/Consult. Vitals: Vital Signs Temp Pulse Pulse Resp BP BP Pulse Ox 05/25/21 15:00 97.4 F L 88 16 141/81 05/25/21 14:32 90 16 131/78 05/25/21 14:02 80 16 141/84 05/25/21 13:32 152/90 05/25/21 13:17 155/88 05/25/21 13:02 139/88 05/25/21 12:47 142/91 05/25/21 12:32 142/85 05/25/21 12:17 144/93 05/25/21 12:02 157/93 05/25/21 11:47 166/89 05/25/21 11:32 161/100 05/25/21 11:17 158/95 05/25/21 11:02 151/99 05/25/21 10:47 150/94 05/25/21 10:32 68 144/87 05/25/21 10:17 75 141/87 05/25/21 10:02 60 16 149/93 05/25/21 09:11 98 F 56 L 16 179/100 05/25/21 09:02 98 20 185/121 99 05/25/21 08:04 98.3 F 62 18 188/107 99 Intake and Output 05/25/21 05/25/21 05/25/21 06:59 14:59 22:59 Output Total 2900 1000 Balance -2900 -1000 Output: Urine 2900 1000 Uretheral (Rust) 1999 Other: Weight 77.927 kg Results CBC & Chem 7: 05/25/21 08:34 05/25/21 08:34 Labs: Abnormal Lab Results - Last 24 Hours (Table) 05/25/21 05/25/21 05/25/21 Range/Units 08:34 08:34 09:31 RBC 3.07 L (3.80-5.40) m/uL Hgb 10.1 L (11.4-16.0) gm/dL Hct 29.4 L (34.0-46.0) % Lymphocytes # 0.9 L (1.0-4.8) k/uL Potassium 3.4 L (3.5-5.1) mmol/L Chloride 111 H (98-107) mmol/L Carbon Dioxide 21 L (22-30) mmol/L BUN 18 H (7-17) mg/dL Total Protein 5.7 L (6.3-8.2) g/dL Albumin 3.3 L (3.5-5.0) g/dL Urine Blood Small H (Negative)
[2021-05-26] MEDS: HYDROcodone/APAP 5-325MG 1 EACH TAB PO PRN ×3 (02:37→16:57)
[2021-05-26] MEDS: LABETALOL 100 MG TAB PO SCH ×2 (08:51→21:38)
--- NOTE | 2021-05-26 12:04 | P.DS ---
Providers Date of admission: 05/26/21 10:16 Expected date of discharge: 05/26/21 Attending physician: Shala Cheatham Consults: 05/25/21 16:15 Consult Physician Urgent Consulting Provider: Arelis Geller Consult Reason/Comments: elevated bb Do you want consulting provider notified?: Yes Placement Type Exists?: Yes Primary care physician: Stated None Hospital Course: This is a 36-year-old female who is status post section 1 week ago for arrest of dilatation and descent. She really presented through the emergency room yesterday with elevated blood pressures. Blood pressures on admission 180/110. She was sent home on labetalol 200 mg 3 times daily but was not taking it consistently. She had a mild headache. Labs were all within normal limits, please see my dictated history and physical for details. Patient was given 6 g of magnesium sulfate loading dose, run on 2 g per hour for 24 hours. Medicine consult was obtained. She has become stable now on labetalol 300 mg twice daily. She has had over 8 L of diuresis while she is here. The incision is clean and dry, intact. Fundus is firm, midline, proximal May 16 week size. Extremities reveal lessened edema, now +1. Reflexes are normal. Headache has resolved. Patient is tolerating regular diet and would like to be discharged home. She will continue taking her blood pressures daily at home and record them. She will return to see me in the office in 1 week with these blood pressures. She will continue labetalol 300 mg twice daily, she does have medication at home. She will call with any fevers shakes or chills, headache visual changes or right upper quadrant pain, any feeling of malaise or discomfort. Assessment: Doing well, gestational hypertension, stabilized on labetalol. 8 L of diuresis noted. Patient Condition at Discharge: Good Plan - Discharge Summary Discharge Rx Participant: No New Discharge Prescriptions: No Action Labetalol [Trandate] 200 tab PO TID Discharge Medication List Labetalol [Trandate] 200 tab PO TID 05/25/21 [History] Follow up Appointment(s)/Referral(s): None,Stated [Primary Care Provider] - 1 Week Discharge Disposition: HOME SELF-CARE
[2021-05-26] MEDS ORDERED: NIFEdipine XL 30 MG TAB.ER.24 PO SCH (12:45)
--- NOTE | 2021-05-26 14:50 | P.PN ---
Subjective Progress Note Date: 05/26/21 (delayed charting seen at 0830) Principal diagnosis: high blood pressure Patient is a 36 yo female who is s/p 6 days ago with post- HTN who presented due to increasing blood pressures despite labetalol. She was admitted to Dr. Cheatham and we are asked to consult for HTN. She was given hydralazine multiple doses and magnesium. Labetalol changed to 300 BID. Ini tially BP well controlled. Patient seen and examined at bedside. Her headache is much improved since yesterday. She denies any nausea, vomiting, abdominal pain. She wants to go home. General: non toxic, no distress, appears at stated age Derm: warm, dry Head: atraumatic, normocephalic, symmetric Eyes: EOMI, no lid lag, anicteric sclera Mouth: no lip lesion, mucus membranes moist Cardiovascular: S1S2 reg, no murmur, positive posterior tibial pulse bilateral, Lungs: CTA bilateral, no rhonchi, no rales , no accessory muscle use Abdominal: soft, nontender to palpation, no guarding, no appreciable organomegaly Ext: no gross muscle atrophy, 1+ edema, no contractures Neuro: CN II-XI grossly intact, no focal neuro deficits Psych: Alert, oriented, appropriate affect Post parturm HTN - Labetalol 300mg BID, afternoon BP increased and added procardiaxL 30 added will continue to monitor, if BP down trending 2 hours after dose can likely continue with discharge. - D/W Dr. Cheatham at Bedside. Overweight with BMI 30.4 - outpatient structured weight loss D/W patient the importance of finding a primary care physician to follow with for health maintenance., she will use the smae one as her boyfriend and make an appointment. Thank you for allowing us to participate in the care of this pleasant patient. Do not hesitate to contact us with questions. Someone can be reached from the [facility] hospitalist group all hours of the day at [phone] or via [employer]. Objective - Vital Signs Vital signs: Vital Signs Temp 97.3 F L 05/26/21 08:00 Pulse 75 05/26/21 12:00 Resp 16 05/26/21 12:00 BP 140/99 05/26/21 12:00 Pulse Ox 100 05/26/21 06:00 Intake & Output 05/25/21 05/26/21 05/26/21 18:59 06:59 18:59 Intake Total 875 500 Output Total 5300 2850 1200 Balance -8213 -6947 -6732 Weight 77.927 kg 72.892 kg Intake: Intake, IV Titration 875 500 Amount Lactated Ringers 1,000 ml 525 @ 75 mls/hr IV .[id number] ANTONIETA Rx#:[id number] Magnesium Sulfate-Water 350 500 Pmx 20 gm In Water For Injection 1 500ml.bag @ 2 GM/HR 50 mls/hr IV .Q10H ANTONIETA Rx#:[id number] Output: Urine 5300 2850 1200 Uretheral (Rust) 2000 600 Other: Voiding Method Indwelling Catheter # Voids 1 - Labs CBC & Chem 7: 05/25/21 08:34 05/25/21 08:34
[2021-05-26] MEDS ORDERED: hydrALAZINE HCL 20 MG/ML 1 ML VIAL IVP STA (16:08)
[2021-05-26] MEDS ORDERED: NIFEdipine XL 30 MG TAB.ER.24 PO STA (17:11)
--- NOTE | 2021-05-27 08:09 | P.DS ---
Providers Date of admission: 05/26/21 10:16 Expected date of discharge: 05/27/21 Attending physician: Shala Cheatham Consults: 05/25/21 16:15 Consult Physician Urgent Consulting Provider: Arelis Geller Consult Reason/Comments: elevated bp Do you want consulting provider notified?: Yes Placement Type Exists?: Yes Primary care physician: Stated None Hospital Course: Please see dictated discharge summary yesterday. Discharge was canceled, blood pressures elevated to the 150s over 90s. Procardia was adjusted to 60 mg XL once daily. Labetalol 300 mg twice daily continued. Plan is for echocardiogram this morning, test and turn up technician at the bedside at this time. Pending normal results, patient will be discharged home later today with instructions as previously noted. Assessment: Doing well, gestational hypertension, stabilized on labetalol. 8 L of diuresis noted. Patient Condition at Discharge: Good Plan - Discharge Summary Discharge Rx Participant: No New Discharge Prescriptions: No Action Labetalol [Trandate] 200 tab PO TID Discharge Medication List Labetalol [Trandate] 200 tab PO TID 05/25/21 [History] Follow up Appointment(s)/Referral(s): None,Stated [Primary Care Provider] - 1 Week Discharge Disposition: HOME SELF-CARE
[2021-05-27] MEDS: HYDROcodone/APAP 5-325MG 1 EACH TAB PO PRN ×2 (08:30→14:58)
[2021-05-27] MEDS: LABETALOL 100 MG TAB PO SCH (08:30)
[2021-05-27] MEDS: LACTATED RINGERS 1,000 ML IV SCH ×2 (08:32→10:00)
[2021-05-27] MEDS: MAGNESIUM SULFATE-WATER PMX 20 GM in WATER FOR INJECTION 1 500ML.BAG IV SCH (10:00)
[2021-05-27 10:09] VITALS: RESP 18
[2021-05-27 12:16] VITALS: TEMP 97.9
[2021-05-27] MEDS: hydrALAZINE HCL 20 MG/ML 1 ML VIAL IVP STA ×2 (12:31→13:00)
[2021-05-27] MEDS: NIFEdipine XL 30 MG TAB.ER.24 PO STA ×2 (12:31→13:00)
--- NOTE | 2021-05-27 15:21 | ECHOF ---
Referral Reason:elevated bp MEASUREMENTS -------- HEIGHT: 154.9 cm WEIGHT: 72.6 kg BP: 128/71 IVSd: 1.2 cm (0.6 - 1.1) LVIDd: 4.9 cm (3.9 - 5.3) LVPWd: 1.1 cm (0.6 - 1.1) EDV(Teich): 115 ml IVSs: 1.6 cm LVIDs: 3.4 cm LVPWs: 1.5 cm %IVS Thck: 38 % ESV(Teich): 46 ml EF(Teich): 60 % %FS: 32 % SV(Teich): 69 ml LA Diam: 4.0 cm (2.7 - 3.8) RVIDd: 3.1 cm (< 3.3) LALs A4C: 5.1 cm LAAs A4C: 18.8 cm LAESV A-L A4C: 58 ml LAESV MOD A4C: 54 ml LALs A2C: 4.9 cm LAAs A2C: 17.2 cm LAESV A-L A2C: 51 ml LAESV MOD A2C: 48 ml LAESV(A-L): 56 ml LAESV Index (A-L): 32.29 ml/m Ao Diam: 3.0 cm (2.0 - 3.7) AV Cusp: 2.1 cm (1.5 - 2.6) EPSS: 1.0 cm MV E Dennis: 1.10 m/s MV DecT: 180 ms MV Dec Pickens: 6.1 m/s MV A Dennis: 1.26 m/s MV E/A Ratio: 0.88 MV PHT: 52 ms AV Vmax: 1.95 m/s AV maxP.31 mmHg AV Vmax: 1.96 m/s AV Vmean: 1.38 m/s AV maxP.38 mmHg AV meanP.49 mmHg AV Env.Ti: 300 ms AV VTI: 41.4 cm TR Vmax: 2.64 m/s TR maxP.77 mmHg RAP: 5.00 mmHg RVSP: 32.77 mmHg MV EF SLOPE: 89.19 mm/s (70 - 150) MV EXCURSION: 16.92 mm (> 18.000) FINDINGS -------- Sinus rhythm. This was a technically good study. The left ventricular size is normal. There is borderline concentric left ventricular hypertrophy. Overall left ventricular systolic function is normal with, an EF between 60 - 65 %. The right ventricle is normal in size. LA is midly dilated 29-33ml/m2. The right atrium is normal in size. Interatrial and interventricular septum intact. The aortic valve is trileaflet and appears structurally normal. Trace amount of aortic regurgitatio n. There is trace mitral regurgitation. Mild tricuspid regurgitation present. Right ventricular systolic pressure is normal at < 35 mmHg. Trace/mild (physiologic) pulmonic regurgitation. The aortic root size is normal. Normal inferior vena cava with normal inspiratory collapse consistent with estimated right atrial pre ssure of 5 mmHg. There is no pericardial effusion. CONCLUSIONS -------- 1. The left ventricular size is normal. 2. There is borderline concentric left ventricular hypertrophy. 3. Overall left ventricular systolic function is normal with, an EF between 60 - 65 %. 4. LA is midly dilated 29-33ml/m2. 5. Interatrial and interventricular septum intact. 6. Trace amount of aortic regurgitation. 7. There is trace mitral regurgitation. 8. Mild tricuspid regurgitation present. 9. Trace/mild (physiologic) pulmonic regurgitation. 10. There is no pericardial effusion. [employer]: Nancy Rizo RDCS
[2021-05-27] MEDS ORDERED: LORazepam 2 MG/ML INJ IV STA (16:34)
--- NOTE | 2021-05-27 17:46 | P.PN ---
Subjective Progress Note Date: 05/27/21 (delayed charting seen at 0920) Principal diagnosis: high blood pressure Patient is a 36 yo female who is s/p 6 days ago with post- HTN who presented due to increasing blood pressures despite labetalol. She was admitted to Dr. Cheatham and we are asked to consult for HTN. She was given hydralazine multiple doses and magnesium. Labetalol changed to 300 BID. Ini tially BP well controlled. BP continued to elevated and Procardia was added. Patient seen and examined at bedside. Headache is resolved. no chest pain, no abdominal pain, no nausea. Feeling well. Anxious to go home. General: non toxic, no distress, appears at stated age Derm: warm, dry Head: atraumatic, normocephalic, symmetric Eyes: EOMI, no lid lag, anicteric sclera Mouth: no lip lesion, mucus membranes moist Cardiovascular: S1S2 reg, no murmur, positive posterior tibial pulse bilateral, Lungs: CTA bilateral, no rhonchi, no rales , no accessory muscle use Abdominal: soft, nontender to palpation, no guarding, no appreciable organomegaly Ext: no gross muscle atrophy, trace edema, no contractures Neuro: CN II-XI grossly intact, no focal neuro deficits Psych: Alert, oriented, appropriate affect Post parturm HTN - Labetalol 300mg BID - Procardia 60 - BP continued to elevated added an additional dose of procardia, will try treatment of anxiety. - D/W Dr. Cheatham Overweight with BMI 30.4 - outpatient structured weight loss Appointment made with Dr. Moreno on 06/01 at 1645 and added to discharge summary. See Discharge instructions tab for further instructions Thank you for allowing us to participate in the care of this pleasant patient. Do not hesitate to contact us with questions. Someone can be reached from the [facility] hospitalist group all hours of the day at [phone] or via [employer]. Objective - Vital Signs Vital signs: Vital Signs Temp 97.9 F 05/27/21 12:00 Pulse 87 05/27/21 12:00 Resp 18 05/27/21 15:15 BP 162/92 05/27/21 15:56 Pulse Ox 97 05/27/21 12:00 Intake & Output 05/26/21 05/27/21 05/27/21 18:59 06:59 18:59 Output Total 1200 Balance -1200 Weight 72.892 kg 70.392 kg Output: Urine 1200 Uretheral (Rust) 600 Other: Voiding Method Toilet # Voids 1 1 1 - Labs CBC & Chem 7: 05/25/21 08:34 05/25/21 08:34
[2021-05-27 18:03] VITALS: BP 142/86; PULSE 92
[2021-05-28] MEDS ORDERED: NIFEdipine XL 90 MG TAB.ER.24 PO SCH (09:00)
== END 2021-05-27 18:56 | disposition home or self-care (01) ==
LOC: EC 08:01 → 4FBP 09:01 → OBSVTOIN 05-26 10:16
PROVIDERS: ADMIT Obstetrics & Gynecology; ATTEND Obstetrics & Gynecology
CPT/HCPCS: 36415; 80053; 81001; 82239; 83615; 84550; 85025; 93005; 93306; 96365; 96375; 96376; 99291

== ENCOUNTER 2022-04-03 22:03 | Emergency (ER) | payer OTHER ==
[2022-04-03 22:12] VITALS: BP 124/90; PULSE 72; RESP 16; TEMP 98.3
[2022-04-03] MEDS ORDERED: ACETAMINOPHEN TAB 500 MG TAB PO STA (22:57)
[2022-04-03] MEDS ORDERED: IBUPROFEN 600 MG STARTER PACK 4 TAB BTL PO STA (22:57)
[2022-04-03] MEDS ORDERED: IBUPROFEN 600 MG TAB PO STA (22:57)
--- NOTE | 2022-04-03 23:00 | ED ---
Upper Extremity HPI - General Chief Complaint: Recheck/Abnormal Lab/Rx Stated Complaint: Complication after plasma donation Time Seen by Provider: 04/03/22 22:22 Source: patient, RN notes reviewed, old records reviewed Mode of arrival: ambulatory Limitations: no limitations - History of Present Illness Initial Comments: This is a 36-year-old female Vinnie with appropriate extremity pain, pain around recent IV injection site from donating plasma. Patient was receiving blood products back in the needle slipped out of her brain. Patient currently comp laining of pain left upper extremity able to move arm without significant difficulty. States swelling maybe a little bit worse in originally was. No other complaint or admission MD Complaint: Injury to:: left, arm -: hour(s) Other Extremity Injury: Arm: Left Other Injuries: none Handedness: right Place: home Severity scale (1-10): 5 Improves With: none Worsens With: none Associated Symptoms: denies other symptoms Treatments Prior to Arrival: other - Related Data Previous Rx's Medication Instructions Recorded LORazepam [Ativan] 0.5 mg PO TID PRN 3 Days #9 tab 05/27/21 Labetalol [Trandate] 300 tab PO BID #0 05/27/21 NIFEdipine XL [Procardia Xl] 30 mg PO BID #90 tab 05/27/21 Allergies Allergy/AdvReac Type Severity Reaction Status Date / Time Penicillins Allergy Rash/Hives Verified 04/03/22 22:09 shellfish derived [Shellfish] Allergy Rash/Hives Verified 04/03/22 22:09 Review of Systems ROS Statement: Those systems with pertinent positive or pertinent negative responses have been documented in the HPI. ROS Other: All systems not noted in ROS Statement are negative. Past Medical History Past Medical History: Asthma History of Any Multi-Drug Resistant Organisms: None Reported Past Surgical History: Adenoidectomy, Section, Tonsillectomy Past Psychological History: No Psychological Hx Reported Smoking Status: Never smoker Past Alcohol Use History: Occasional Past Drug Use History: None Reported - Past Family History Father Family Medical History: Hypertension General Exam Limitations: no limitations General appearance: alert, in no apparent distress Head exam: Present: atraumatic, normocephalic, normal inspection Eye exam: Present: normal appearance, PERRL, EOMI. Absent: scleral icterus, conjunctival injection, periorbital swelling ENT exam: Present: normal exam, mucous membranes moist Neck exam: Present: normal inspection. Absent: tenderness, meningismus, lymphadenopathy Respiratory exam: Present: normal lung sounds bilaterally. Absent: respiratory distress, wheezes, rales, rhonchi, stridor Cardiovascular Exam: Present: regular rate, normal rhythm, normal heart sounds. Absent: systolic murmur, diastolic murmur, rubs, gallop, clicks GI/Abdominal exam: Present: soft, normal bowel sounds. Absent: distended, tenderness, guarding, rebound, rigid Extremities exam: Present: normal inspection, full ROM, normal capillary refill, other (Left upper arm swelling and edema, IV puncture site, no erythema or warmth. Compartments are soft). Absent: tenderness, pedal edema, joint swelling, calf tenderness Back exam: Present: normal inspection Neurological exam: Present: alert, oriented X3, CN II-XII intact Psychiatric exam: Present: normal affect, normal mood Skin exam: Present: warm, dry, intact, normal color. Absent: rash Course Vital Signs 04/03/22 22:09 Temperature 98.3 F Pulse Rate 72 Respiratory 16 Rate Blood Pressure 124/90 O2 Sat by Pulse 100 Oximetry - Reevaluation(s) Reevaluation #1: 04/03/22 22:59 Record is reviewed Reevaluation #2: 04/03/22 22:59 patient informed results here in the ER Medical Decision Making - Medical Decision Making 36 female DF for evaluation left upper extremity pain and swelling. She does have hematoma superficial some of phlebitis of left arm secondary to IV start no vomiting plasma. Patient has no evidence of infection or DVT. Patient can be discharged home Disposition Clinical Impression: Superficial thrombophlebitis of left upper extremity, Traumatic hematoma of left upper arm Disposition: HOME SELF-CARE Condition: Good Instructions (If sedation given, give patient instructions): Superficial Thrombophlebitis (ED), Hematoma (ED) Is patient prescribed a controlled substance at d/c from ED?: No Referrals: Jose Luis Moreno [Primary Care Provider] - 1-2 days Time of Disposition: 23:00
== END 2022-04-03 23:44 | disposition home or self-care (01) ==
LOC: EC 22:03
DX: S40.022A Contusion of left upper arm, initial encounter (principal); I80.8 Phlebitis and thrombophlebitis of other sites; J45.909 Unspecified asthma, uncomplicated; Z79.899 Other long term (current) drug therapy; X58.XXXA Exposure to other specified factors, initial encounter
CPT/HCPCS: 99283

== ENCOUNTER 2023-03-12 23:02 | Emergency (ER) | payer BC, OTHER ==
[2023-03-12 23:14] VITALS: TEMP 97.8
--- NOTE | 2023-03-13 00:06 | ED ---
General Adult HPI - General Chief complaint: Skin/Abscess/Foreign Body Stated complaint: Rash spreading across body Time Seen by Provider: 03/12/23 23:25 Source: patient, RN notes reviewed Mode of arrival: ambulatory Limitations: no limitations - History of Present Illness Initial comments: 37-year-old female with no significant past medical history presents to the emergency department with a chief complaint of rash. Patient reports he rash to right upper thigh that appeared earlier today. She noticed it when she took off her left hand. She denies any known fevers or chills. Denies any new laundry detergents, soaps, lotions. - Related Data Previous Rx's Medication Instructions Recorded LORazepam [Ativan] 0.5 mg PO TID PRN 3 Days #9 tab 05/27/21 Labetalol [Trandate] 300 tab PO BID #0 05/27/21 NIFEdipine XL [Procardia Xl] 30 mg PO BID #90 tab 05/27/21 Cephalexin [Keflex] 500 mg PO Q6HR #40 cap 03/13/23 Sulfamethox-Tmp 800-160Mg [Bactrim 1 each PO Q12HR #20 tab 03/13/23 Ds] Allergies Allergy/AdvReac Type Severity Reaction Status Date / Time Penicillins Allergy Rash/Hives Verified 03/12/23 23:08 shellfish derived [Shellfish] Allergy Rash/Hives Verified 03/12/23 23:08 Review of Systems ROS Statement: Those systems with pertinent positive or pertinent negative responses have been documented in the HPI. ROS Other: All systems not noted in ROS Statement are negative. Past Medical History Past Medical History: Asthma History of Any Multi-Drug Resistant Organisms: None Reported Past Surgical History: Adenoidectomy, Section, Tonsillectomy Past Psychological History: No Psychological Hx Reported Smoking Status: Never smoker Past Alcohol Use History: Occasional Past Drug Use History: None Reported - Past Family History Father Family Medical History: Hypertension General Exam - General Exam Comments Initial Comments: General: Alert, in no acute distress Head: atraumatic normocephalic. Eyes PERRL, EOMI intact, mucous membranes moist Respiratory: Lungs clear to auscultation bilaterally Cardiovascular: Heart rate regular rate and rhythm Abdominal: Soft without guarding or rebound Extremities: Normal inspection with full range of motion and normal capillary refill, 1 cm circular erythematous lesion to right thigh. No fluctuance noticed. Mild tenderness. Neuroogic: alert and oriented 3, CN II-XII intact, able to ambulate with steady gait Skin: warm dry and intact with normal color Limitations: no limitations Course Vital Signs 03/12/23 03/13/23 23:09 00:25 Temperature 97.8 F Pulse Rate 95 83 Respiratory 16 18 Rate Blood Pressure 119/83 111/76 O2 Sat by Pulse 100 100 Oximetry Medical Decision Making - Medical Decision Making Was pt. sent in by a medical professional or institution (, [facility], [employer] L[employer] PRESS OPERATOR, urgent care, hospital, or snf...) When possible be specific @ -[No] Did you speak to anyone other than the patient for history (EMS, parent, family, police, friend...)? What history was obtained from this source @ -[No] Did you review nursing and triage notes (agree or disagree)? Why? @ -[I reviewed and agree with nursing and triage notes] Were old charts reviewed (outside hosp., previous admission, EMS record, old EKG, old radiological studies, urgent care reports/EKG's, snf records)? Report findings @ -[No old charts were reviewed] Differential Diagnosis (chest pain, altered mental status, abdominal pain women, abdominal pain men, vaginal bleeding, weakness, fever, dyspnea, syncope, headache, dizziness, GI bleed, back pain, seizure, CVA, palpatations, mental health, musculoskeletal)? @ -[not applicable] EKG interpreted by me (3pts min.). @ -[As above] X-rays interpreted by me (1pt min.). @ -[None done] CT interpreted by me (1pt min.). @ -[None done] U/S interpreted by me (1pt. min.). @ -[None done] What testing was considered but not performed or refused? (CT, X-rays, U/S, labs)? Why? @ -[None] What meds were considered but not given or refused? Why? @ -[None] Did you discuss the management of the patient with other professionals (professionals i.e. DANTE Garvin, [employer] L[employer] PRESS OPERATOR, lab, RT, psych nurse, drug abuse social worker, divorce lawyer, teacher, space operations officer, casework supervisor)? Give summary @ -[No] Was smoking cessation discussed for >3mins.? @ -[No] Was critical care preformed (if so, how long)? @ -[No] Were there social determinants of health that impacted care today? How? (Homelessness, low income, unemployed, alcoholism, drug addiction, transportation, low edu. Level, literacy, decrease access to med. care, [facility], rehab)? @ -[No] Was there de-escalation of care discussed even if they declined (Discuss DNR or withdrawal of care, Hospice)? DNR status @ -[No] What co-morbidities impacted this encounter? (DM, HTN, Smoking, COPD, CAD, Cancer, CVA, ARF, Chemo, Hep., AIDS, mental health diagnosis, sleep apnea, morbid obesity)? @ -[None] Was patient admitted / discharged? Hospital course, mention meds given and route, prescriptions, significant lab abnormalities, going to OR and other pertinent info. @ -Discharged. This is a 37-year-old female who presents to the emergency department with abscess. Patient had a thorough history and physical exam performed. Physical exam reveals a small 1 cm circular lesion to lower thigh. Patient was given prescription for Keflex and Bactrim. Patient discharged in stable condition. Return precautions were discussed. Case discussed with IDRIS Vela who agrees with plan of care Undiagnosed new problem with uncertain prognosis? @ -[No] Drug Therapy requiring intensive monitoring for toxicity (Heparin, Nitro, Insulin, Cardizem)? @ -[No] Were any procedures done? @ -[No] Diagnosis/symptom? @ -rash - abscess Acute, or Chronic, or Acute on Chronic? @ -acute Uncomplicated (without systemic symptoms) or Complicated (systemic symptoms)? @ -uncomplicated Side effects of treatment? @ -[No] Exacerbation, Progression, or Severe Exacerbation? @ -[No] Poses a threat to life or bodily function? How? (Chest pain, [place], [place], pneumonia, PE, COPD, DKA, ARF, appy, cholecystitis, CVA, Diverticulitis, Homicidal, Suicidal, threat to staff... and all critical care pts) @ -low likelihood Disposition Clinical Impression: Rash Disposition: HOME SELF-CARE Condition: Stable Instructions (If sedation given, give patient instructions): Dermatitis (ED) Additional Instructions: Please return to the nearest emergency department symptoms worsen or persist Prescriptions: Sulfamethox-Tmp 800-160Mg [Bactrim Ds] 1 each PO Q12HR #20 tab Cephalexin [Keflex] 500 mg PO Q6HR #40 cap Is patient prescribed a controlled substance at d/c from ED?: No Referrals: Dante Guzmán MD [Primary Care Provider] - 1-2 days Time of Disposition: 00:06
[2023-03-13 00:27] VITALS: BP 111/76; PULSE 83; RESP 18
== END 2023-03-13 00:35 | disposition home or self-care (01) ==
LOC: EC 23:02
DX: L02.415 Cutaneous abscess of right lower limb (principal); J45.909 Unspecified asthma, uncomplicated; Z88.0 Allergy status to penicillin; Z91.013 Allergy to seafood
CPT/HCPCS: 99282